=== PATIENT | female | born 1930 | race Caucasian/White ===

== ENCOUNTER 2016-11-05 03:07 | Inpatient (IN) | payer MEDICARE, MEDICAID ==
--- NOTE | ~2016-11-05 | ECHO ---
Transthoracic Echocardiography Report (TTE) Demographics Patient Name RADHA SINGH Date of Study 11/07/2016 Patient Number [id number] Visit Number [id number] Date of 1930 Room Number G6224 Accession Number [id number] Gender Female Age 86 year(s) Referring Tomas Resendiz V Floor Covering Printer Belén Ibrahim RVT Physician Physician Interpreting Nawaf Durand MD Works Manager Physician Supervising Ordering Physician Ivette Cannon MD, MD/MLP Nurse Stress Funeral Planning Counselor Conclusions Contractility Score Summary Normal Left Ventricular contractility was noted. Summary The estimated left ventricular ejection fraction is 55-60%. Mild to moderate concentric left ventricular hypertrophy. Diastolic assessment reveals Grade I diastolic dysfunction. The left atrium is mildly dilated. The right atrium is mildly dilated. Device lead seen in the right atrium and right ventricle. Mild mitral annular calcification. There is mild aortic stenosis by the Continuity Equation. The peak velocity is 2.88 m/s, the mean gradient is 17 mmHg, and the valve area based on the continuity equation is 2.48 cm2, stroke volume index is 64.81 ml/m2. There is moderate aortic regurgitation by color Doppler. Mild tricuspid regurgitation by color Doppler. There is mild pulmonary hypertension. The pulmonary pressure (RVSP) is 40 mmHg. The ascending aorta appears mildly dilated. The maximum diameter measures 3.3 cm. Procedure Type of Study TTE procedure:2D Echocardiogram. Procedure Date Date: 11/07/2016 Start: 04:35 PM Study Location: Inpatient Portable Technical Quality: Adequate visualization Indications:Shortness of breath and Congestive heart failure. Appropriate Use Criteria: 8 Patient Status: Routine Rhythm: Paced HR: 80 bpm BP: 136/61 mmHg M-Mode/2D Measurements LV Diastolic Dimension: 4.51 cm LV Systolic Dimension: 2.61 cm LV Septum Diastolic: 1.32 cm LV PW Diastolic: 0.86 cm AO Root Dimension: 2.5 cm Cardiac Output: 8.92 l/min LA Dimension: 3 cm LVOT: 2.1 cm LVOT VTI: 32.2 cm RV Base: 3.73 cm LV Stroke volume: 111.47 ml RV Length: 6.33 cm TAPSE: 1.94 cm TDI-S': 14.1 cm/s Doppler Measurements AV Peak Velocity: 2.88 m/s MV Peak E-Wave: 0.85 m/s AV Peak Gradient: 33.18 mmHg MV Peak A-Wave: 1.04 m/s AV Mean Gradient: 17 mmHg MV E/A Ratio: 0.82 LVOT Peak Velocity: 1.86 m/s MV P1/2t: 74 msec AV P1/2t: 402 msec TR Gradient:35.05 mmHg PV Peak Velocity: 1.48 m/s Estimated RAP:5 mmHg PV Peak Gradient: 8.76 mmHg Estimated RVSP: 40 mmHg Estimated PASP: 40.05 mmHg E' Septal Velocity: 0.07 m/s A' Septal Velocity: 0.1 m/s E' Lateral Velocity: 0.08 m/s A' Lateral Velocity: 0.15 m/s Findings Left Ventricle Mild to moderate concentric left ventricular hypertrophy. Diastolic assessment reveals Grade I diastolic dysfunction. Right Ventricle Normal right ventricle structure and function. Device lead noted in the right ventricle. Left Atrium Normal left atrial size. Right Atrium The right atrium is mildly dilated. IVC measures 1.56 cm with inspiratory collapse. Device lead seen in the right atrium. Mitral Valve Trivial mitral regurgitation by color Doppler. Mild mitral annular calcification. Aortic Valve There is mild aortic stenosis by the Continuity Equation. The peak velocity is 2.88 m/s, the mean gradient is 17 mmHg, and the valve area based on the continuity equation is 2.48 cm2, stroke volume index is 64.81 ml/m2. There is moderate aortic regurgitation by color Doppler. Tricuspid Valve Mild-moderate tricuspid regurgitation by color Doppler. There is mild pulmonary hypertension. The pulmonary pressure (RVSP) is 40 mmHg. Pulmonic Valve Trivial pulmonic valve regurgitation by color Doppler. Pericardial Effusion No evidence of pericardial effusion. Miscellaneous The ascending aorta appears mildly dilated. The maximum diameter measures 3.3 cm. Pleural Effusion No evidence of pleural effusion. Contractility Score LV regional wall motion:(0-Non visualized 1-Normal 2-Hypokinesis 3-Akinesis 4-Dyskinesis 5-Aneurysm) Signature dtt: Ladarius Mccracken (cardio) dtd: 11/07/16 1635 Physician Self Edit
--- NOTE | ~2016-11-05 | ER ---
PATIENT'S NAME: RADHA SINGH [facility] AGE: 86 Y [address] ROOM: [place] [address] LOCATION: [facility] ADMIT DATE: 11/05/2016 ER/Outpatient Report DISCHARGE DATE: FAMILY PHYSICIAN: Physician, Unknown ATTENDING PHYSICIAN: Chester Rondon Admission date and time documented in the medical record. I saw the patient at 0315 hours. CHIEF COMPLAINT: Fall, right hip pain. HISTORY OF PRESENT ILLNESS: The patient is an 86-year-old female, who is a resident of [facility]. She was heard crying out and was found on the floor. Placed back in bed, complained of right hip pain. Paramedics were dispatched. They brought the patient to the emergency room by ambulance for evaluation. The patient has a slightly shortened right leg with pain with movement in the right hip. Very hard of hearing, but voices no other complaints. The patient does have a history of paroxysmal atrial fibrillation, is chronic anticoagulated with Coumadin. She does have a seizure disorder. Some dementia, depression. No recent coughs, colds, flus, fever, chills, or sweats. No chest pain, shortness of breath. No abdominal pain, nausea, vomiting, diarrhea. No incontinence of stool or urine. No other extremity injury. No endocrine problems. Does have a history of depression. HOME MEDICATIONS: See attached medication list. ALLERGIES: NONE. SOCIAL HISTORY: Nonsmoker and nondrinker. SIGNIFICANT PAST MEDICAL HISTORY: Hypertension, seizure disorder, paroxysmal atrial fibrillation, dementia, ovarian cancer, meningioma, chronic kidney disease, remote tobacco abuse, chronic anticoagulation with Coumadin, recurrent falls, and depression. OPERATIONS: Hysterectomy, cholecystectomy, cardioversion, and excision of meningioma. REVIEW OF SYSTEMS: All systems reviewed by me are negative with the exception of those discussed in the history of present illness. PATIENT'S NAME: RADHA SINGH [facility] AGE: 86 Y [address] ROOM: [place] [address] LOCATION: [facility] ADMIT DATE: 11/05/2016 ER/Outpatient Report DISCHARGE DATE: FAMILY PHYSICIAN: Physician, Unknown ATTENDING PHYSICIAN: Chester Rondon PHYSICAL EXAMINATION: VITAL SIGNS: Temperature 98.7, pulse 97, respirations 16, blood pressure 132/60, O2 saturation on room air is 98%. HEENT: Negative. LUNGS: Clear. HEART: Regular. Pulses are palpable. ABDOMEN: Soft, nondistended, and nontender. Active bowel tones. PELVIS: Stable. EXTREMITIES: She has a slightly shortened right leg. Tender in the right hip to palpation and with any movement. No open wounds. NEUROVASCULAR: Intact other than she is very hard of hearing. SKIN: Clear. X-RAYS: Plain x-ray of the pelvis showed no fracture. X-ray of the right hip showed femoral neck fracture. Chest x-ray showed no acute infiltrate. We will review all plain films with the radiologist and orthopedic surgeon. Started the patient on IV normal saline, fluids. Gave her fentanyl for pain. IMPRESSION: 1. Right femoral neck fracture secondary to fall. 2. Paroxysmal atrial fibrillation with chronic anticoagulation using Coumadin. 3. Hypertension. 4. Chronic kidney disease. 5. Remote tobacco abuse. 6. Depression. PLAN: Discussed the patient with Dr. Wellington, orthopedic surgeon. We will admit the patient to the hospital per Dr. Marin, hospitalist. MD AMANDA DUONG/modl /[id number] d: 11/05/16 0433 t: 11/05/16 1829, OUTPATIENT REPORT
--- NOTE | ~2016-11-05 | HP ---
PATIENT'S NAME: RADHA SINGH [facility] AGE: 86 Y [address] ROOM: [place] [address] LOCATION: [facility] ADMIT DATE: 11/05/2016 History & Physical DISCHARGE DATE: FAMILY PHYSICIAN: PHYSICIAN, UNKNOWN ATTENDING PHYSICIAN: MARCIA MURDOCK V CHIEF COMPLAINT: Fall. HISTORY OF PRESENT ILLNESS: The patient is an 86-year-old female, resident of assisted living who was found down earlier today. She was put back in bed, but kept complaining of right hip pain. She was taken to the ER where she was found to have a right femoral neck fracture. This entire history is obtained from ER physician, as the patient is somewhat disoriented right now. She denies any chest pain, shortness of breath, nausea, vomiting, diarrhea, or diaphoresis. Her only complaint at this point is to urinate though she does have a Gutierrez catheter in place. REVIEW OF SYSTEMS: All systems have been reviewed and are negative aside from pertinent positives mentioned above. PAST MEDICAL HISTORY: As extracted from an accompanying chart is positive for atrial fibrillation, on Coumadin; pacemaker; depression; seizure disorder, on Dilantin; CKD stage 3; and GERD. PAST SURGICAL HISTORY: Positive for history of ovarian malignancy. CURRENT MEDICATIONS: 1. Coumadin. 2. Ensure. 3. Potassium chloride. 4. Calcium carbonate. 5. Aricept. 6. Mirtazapine. 7. Acetaminophen. 8. Robitussin. 9. Milk of magnesia. 10. Lisinopril/hydrochlorothiazide. 11. Dulcolax. 12. Diltiazem. 13. Calcium. 14. Acetaminophen. PATIENT'S NAME: RADHA SNIGH [facility] AGE: 86 Y [address] ROOM: [address] [place] [id number] LOCATION: [facility] ADMIT DATE: 11/05/2016 History & Physical DISCHARGE DATE: FAMILY PHYSICIAN: PHYSICIAN, UNKNOWN ATTENDING PHYSICIAN: MARCIA MURDOCK V FAMILY HISTORY: Cannot be reviewed due to altered mental status. SOCIAL HISTORY: The patient resides in an assisted living. She has no ongoing toxic habits. PHYSICAL EXAMINATION: VITAL SIGNS: Blood pressure 132/60, pulse is 97, respirations are 16, temperature 98.7, and satting 90% on 2 L nasal cannula. GENERAL: Appears as an elderly and frail female, in no acute distress. NEUROLOGICAL: Nonfocal. EYES: Pupils are equal and reactive to light. LYMPHATIC: No cervical lymphadenopathy. ENDOCRINE: No thyromegaly. LUNGS: Clear to auscultation in all garcia. HEART: Regular with no appreciable murmurs, gallops, or rubs. GI: Abdomen is soft, nontender, and nondistended. : No costovertebral angle tenderness. VASCULAR: Reveals 2+ pedal pulses. MUSCULOSKELETAL: Deferred. SKIN: Warm and dry. PSYCHIATRIC: Somewhat disoriented cognition, but preserved mood and affect. LABORATORY DATA: Studies from the ER significant for an EKG, which sinus tachycardia at 100 beats per minute with no ST-segment or T-wave abnormalities. Lab results are significant for sodium 134, alkaline phosphatase is 170, white count is 13.3, INR of 3.3. Urinalysis with 500 leukocytes, positive nitrites, and many bacteria. ASSESSMENT AND PLAN: This is an 86-year-old female who is admitted for surgical intervention on a right femoral neck fracture. Prior to proceeding to surgery, we will have to reverse her Coumadin level. We will give her vitamin K and FFP now. My understanding is that surgery is scheduled for later today. We will repeat her coags once she receives her blood products. While the circumstances of her fall are unknown, she does not appear to be volume overloaded and is not reporting any other symptoms. We will get a standard chest x-ray and an EKG. We will assess need for further preoperative workup based on those tests. 1. Apparent pyuria with bacteriuria. We will treat that with a brief course of antibiotics. 2. History of seizure disorder. The patient's Dilantin was recently discontinued and we will have to find out why and whether has contributed to her fall today. PATIENT'S NAME: RADHA SINGH [facility] AGE: 86 Y [address] ROOM: [address] [place], [place] [address] LOCATION: [facility] ADMIT DATE: 11/05/2016 History & Physical DISCHARGE DATE: FAMILY PHYSICIAN: PHYSICIAN, UNKNOWN ATTENDING PHYSICIAN: MARCIA MURDOCK V 3. Depression and anxiety. We will continue her on mirtazapine. 4. Goals of care. There is a DNR accompanying the patient and we will make that her status. 5. Additional management will depend on reversal of her anticoagulation, chest x-ray, EKG, and surgical workup planned. Time dedicated to this patient's encounter is 35 minutes. MD JENNA BARONE/negro /[id number] D: [id number] T: [id number] HISTORY & PHYSICAL
--- NOTE | ~2016-11-05 | OR ---
PATIENT'S NAME: RADHA SINGH [facility] AGE: 86 Y [address] ROOM: [address] [address] LOCATION: [facility] ADMIT DATE: 11/05/2016 OR/Procedure Report DISCHARGE DATE: FAMILY PHYSICIAN: PHYSICIAN, UNKNOWN ATTENDING PHYSICIAN: MARCIA MURDOCK V SURGEON: Gt Wellington MD ELECTRICIAN'S ASSISTANT: MARI Solitario. DATE OF PROCEDURE: 11/06/2016 PREOPERATIVE DIAGNOSIS: Displaced subcapital fracture, right hip. POSTOPERATIVE DIAGNOSIS: Displaced subcapital fracture, right hip. OPERATION: Noncemented hemiarthroplasty, right hip, with Remedios #11 M/L taper stem with standard offset and a plus 0 x 49 mm unipolar head. ANESTHESIA: General ET tube. INDICATIONS: This is an 86-year-old female, who fell yesterday sustaining a subcapital fracture of her right hip that was displaced. PROCEDURE: The patient was brought to the operating room and when satisfactory general anesthesia had been established, she was placed on her left side with the right side up. The right lower extremity, hip, and hemipelvis were prepped and draped in an aseptic manner. A curvilinear posterior incision was made, centered over the greater trochanter, and carried down through the subcutaneous fat. The fascia nae and fascia of the gluteus alex were divided in line with the skin incision. The short external rotators were put on stretch and cut close to the greater trochanter. The capsule was opened in a T-shaped incision and the fracture visualized and the femoral head removed with a corkscrew. The neck was cut about a fingerbreadth proximal to the lesser trochanter. The neck was lateralized with a box cut chisel and the canal found. Broaching was begun at a and carried up to an 11, which appeared to be rotationally stable. The size 11 M/L taper standard offset stem was opened and impacted down the canal. The 49 mm plus 0 head was impacted on the trunnion and the hip reduced. After irrigating the acetabulum and palpating it for any loose fragments. The capsule was closed with interrupted #2 Orthocord. The piriformis was repaired to the gluteus medius with modified José stitch of #2 Orthocord. The remainder of the closure was by MARI Whelan, and closed the fascia nae with a running #1 Vicryl, the fascia of the gluteus alex with a running #1 Vicryl, the subcutaneous fat with a running 2-0 Vicryl, and the skin with skin jesus. Dressings were applied, and the patient awakened and sent to the recovery area, having tolerated the procedure well. PATIENT'S NAME: RADHA SINGH [facility] AGE: 86 Y [address] ROOM: [place] [address] LOCATION: [facility] ADMIT DATE: 11/05/2016 OR/Procedure Report DISCHARGE DATE: FAMILY PHYSICIAN: PHYSICIAN, UNKNOWN ATTENDING PHYSICIAN: MARCIA MURDOCK V MD LEESA DONALD/negro /[id number] d: 11/06/16 1236 t: 11/11/16 1041, OPERATIVE SUMMARY
--- NOTE | ~2016-11-05 | DS ---
PATIENT'S NAME: RADHA SINGH [facility] AGE: 86 Y [address] ROOM: [address] [place], [place] [address] LOCATION: [facility] ADMIT DATE: 11/05/2016 Discharge Summary DISCHARGE DATE: 11/16/2016 FAMILY PHYSICIAN: Physician, Unknown ATTENDING PHYSICIAN: Martín Marin V PRINCIPAL DIAGNOSIS: Displaced right hip fracture, status post open reduction and internal fixation. OTHER DIAGNOSES: 1. Delirium in the hospital on top of dementia/Alzheimer's. 2. Gastroesophageal reflux disease. 3. Chronic kidney disease, stage 3. 4. History of seizures. 5. Depression. 6. Hypertension. 7. Newly found pulmonary nodules on the left side measuring 0.6 cm as well as bilateral adrenal masses on the CAT scan. HOSPITAL COURSE: An 86-year-old lady with a past medical history of severe dementia and Alzheimer's, history of atrial fibrillation with controlled ventricular rates and on long-term anticoagulation therapy, fell in a custodial, was brought here after right hip fracture was noted. Orthopedics were consulted, and they took the patient to the operating room, and did a right hemiarthroplasty. Her postoperative course was complicated by acute delirium on top of her dementia. Dementia/delirium protocol was instituted in the hospital with partial success. She also tripped into atrial fibrillation with rapid ventricular rate, and cardiology was consulted and they increased AV blocking agents in the form of Cardizem as well as metoprolol. Of note, we found new pulmonary nodules 0.6 cm in the left lower aspect of the lung as well as bilateral adrenal masses. She will need to follow up with Pulmonary on an outpatient basis to follow up this nodule. Given her advanced age, dementia, and multiple comorbidities, how aggressive the medical treatment would be decided by the POA. We, during the course of the hospitalization, tried to reach the son, who lives in [place] but was unable to reach him. Left message on his number. Today, we deemed that she is back to her baseline, and we will send her back to the nursing facility. DISCHARGE MEDICATIONS: 1. Tylenol 650 mg p.o. every 6 hours p.r.n. 2. Calcium carbonate 600 mg p.o. every day. 3. Potassium chloride 20 mEq p.o. twice daily. 4. Calcium carbonate 2 tablets p.o. every 1 hour p.r.n. 5. Diltiazem 240 mg p.o. every day. 6. Donepezil 10 mg p.o. every day. 7. Famotidine 20 mg p.o. twice daily. PATIENT'S NAME: RADHA SINGH [facility] AGE: 86 Y [address] ROOM: [place] [address] LOCATION: [facility] ADMIT DATE: 11/05/2016 Discharge Summary DISCHARGE DATE: 11/14/2016 FAMILY PHYSICIAN: Physician, Unknown ATTENDING PHYSICIAN: Martín Marin V 8. Metoprolol tartrate 50 mg p.o. twice daily. 9. Phenytoin 100 mg p.o. twice daily. 10. Phenytoin 200 mg p.o. every night at bedtime. 11. Montezuma 5/325 p.o. 4 hours as needed for pain. 12. Dulcolax suppository 10 mg p.r.n. 13. Guaifenesin 200 mg p.o. every 4 hours as needed for cough. 14. Magnesium hydroxide 30 mL p.o. every day p.r.n. for constipation. 15. Mirtazapine 45 mg p.o. every night at bedtime. 16. Coumadin 5 mg p.o. 4 days a week. That will be Wednesday, Wednesday, , and Wednesday, and then Coumadin 7.5 mg 3 days a week, and that would be on Wednesday and Wednesday. I spent 15 minutes talking to the patient's son and answered his questions and concerns. DISCHARGE ACTIVITY: As tolerated per PT, OT. DIET: Regular diet. FOLLOWUP: Follow up with Orthopedics as prescribed and followup with primary care physician in 1-2 weeks. The patient was hemodynamically stable on discharge. I received a call from the son regarding the patient. We discussed the prognosis and the course of the hospitalization. I also discussed the CT finding of the pulmonary nodule as well as adrenal masses. He does not want to pursue any aggressive measures at this point in terms of diagnosis and surgeries. He told to let her be and get her to a nursing facility where she can get some physical therapy and enjoy the rest of her life over there. He is going to contact the nursing facility by himself as well. MD MONTEZ QUIÑONES/negro /[id number] d: 11/15/16 0055 t: 11/17/16 1636, DISCHARGE SUMMARY
--- NOTE | ~2016-11-05 | HP ---
PATIENT'S NAME: RADHA SINGH [facility] AGE: 86 Y [address] ROOM: [place] [address] LOCATION: [facility] ADMIT DATE: 11/05/2016 History & Physical DISCHARGE DATE: FAMILY PHYSICIAN: PHYSICIAN, UNKNOWN ATTENDING PHYSICIAN: MARCIA MURDOCK V CHIEF COMPLAINT: Femoral neck fracture, right hip. HISTORY: This 86-year-old female resides at assisted living facility, [facility] here in [place]. She fell last night, unwitnessed, was found at the side of her bed unable to move, they helped her up in bed but continued to have pain in the right hip. An ambulance brought her to the emergency room at [facility] where x-rays demonstrated displaced right femoral neck fracture. She denies other injuries. No blackout spells, headaches, dizziness or blurred vision. No loss of consciousness. PAST MEDICAL HISTORY: Atrial fibrillation, on Coumadin; pacemaker, depression; seizure disorder, on Dilantin; chronic kidney disease stage III, GERD. PAST SURGICAL HISTORY: Hysterectomy for ovarian malignancy. MEDICATIONS: 1. Coumadin. 2. Ensure. 3. Potassium. 4. Aricept. 5. Mirtazapine. 6. Acetaminophen. 7. Robitussin. 8. Lisinopril. 9. Hydrochlorothiazide. 10. Dulcolax. 11. Diltiazem. 12. Calcium. FAMILY HISTORY: Positive for heart disease. SOCIAL HISTORY: Lives in assisted living at [facility]. No alcohol or smoking. REVIEW OF SYSTEMS: No coughs, colds, fevers, chills, or sore throats. No chest pain, shortness PATIENT'S NAME: RADHA SINGH [facility] AGE: 86 Y [address] ROOM: [place] [address] LOCATION: [facility] ADMIT DATE: 11/05/2016 History & Physical DISCHARGE DATE: FAMILY PHYSICIAN: PHYSICIAN, UNKNOWN ATTENDING PHYSICIAN: MARCIA MURDOCK V of breath, or trouble breathing. No nausea, vomiting, or diarrhea. She does have constipation. No dysuria or hematuria. No skin rashes. No auditory or visual changes except that she is chronically hard of hearing. No malaise or weight change. PHYSICAL EXAMINATION: GENERAL: She is hard of hearing. VITAL SIGNS: Blood pressure 132/60, pulse 97, respirations 16, temp 98.7, O2 saturations 90% on 2 L. HEENT: Atraumatic, normocephalic. PERRL. EOMI. TMs clear. Throat clear. NECK: Supple. CHEST: Clear to auscultation. HEART: Regular rhythm. No murmurs or gallops. ABDOMEN: Obese, soft, nontender. No masses. VASCULAR: Good pulses both upper and lower extremities. EXTREMITIES: Right hip is shortened and internally rotated. She is tender in the right groin, has pain with movement. Knees have no tenderness or warmth or redness. She is a little disoriented. SKIN: Warm and dry. X-RAY: AP pelvis and lateral of the right hip demonstrates displaced right femoral neck fracture. IMPRESSION: 1. Displaced right femoral neck fracture. 2. Anticoagulated on Coumadin. INR 3.33. 3. History of atrial fibrillation. 4. Depression. 5. Hypertension. 6. Dementia. 7. Status post pacemaker. 8. History of seizures. 9. Chronic kidney disease. 10. Gastroesophageal reflux disease. PLAN: Preoperative medical clearance followed by hemiarthroplasty right hip. I discussed details of the surgical procedure, risks, benefits, and alternatives emphasizing anesthetic, neurovascular, and infectious complications with the patient and her son. They understand and desired to proceed with surgery as planned. PATIENT'S NAME: RADHA SINGH [facility] AGE: 86 Y [address] ROOM: [place] [address] LOCATION: [facility] ADMIT DATE: 11/05/2016 History & Physical DISCHARGE DATE: FAMILY PHYSICIAN: PHYSICIAN, UNKNOWN ATTENDING PHYSICIAN: MARCIA MURDOCK V MD GIAN CABA/negro /[id number] D: [id number] T: [id number] HISTORY & PHYSICAL
--- NOTE | ~2016-11-05 | CON ---
PATIENT'S NAME: RADHA SINGH [facility] AGE: 86 Y [address] ROOM: [place] [address] LOCATION: [facility] ADMIT DATE: 11/05/2016 Consultation DISCHARGE DATE: FAMILY PHYSICIAN: PHYSICIAN, UNKNOWN ATTENDING PHYSICIAN: MARCIA MURDOCK V DATE OF CONSULTATION: 11/10/2016 REFERRING PHYSICIAN: Gt [place] MD REQUESTING PROVIDER: Dr. Mccracken. REASON FOR CONSULTATION: Atrial fibrillation with rapid ventricular response. CHIEF COMPLAINT: [facility]. HISTORY OF PRESENTING ILLNESS: The patient is an 86-year-old female, who resides at assisted living, and she fell down yesterday, that was unwitnessed, and she complained of right hip pain, and when she was in the ER, she was noted to have a right femoral neck fracture, status post surgery. She has advanced dementia and really is very drowsy right now and unable to answer any of my questions. She underwent procedure without any acute complications. Since yesterday, she was in atrial fibrillation with RVR. EKG on 11/05/2016 showed normal sinus rhythm. She has history of paroxysmal atrial fibrillation and has been on Coumadin as well as diltiazem for rate control. She usually sees Dr. Ladarius Mccracken for cardiology; however, he is unavailable to see the patient during her acute hospitalization and so [facility] has been consulted. REVIEW OF SYSTEMS: Unable to obtain as the patient is quite drowsy and disoriented at this time. PAST MEDICAL HISTORY: From chart review, she has: 1. Paroxysmal atrial fibrillation. 2. Long-term anticoagulation with Coumadin. 3. History of pacemaker implantation. 4. GERD. 5. CKD stage 3. 6. Seizure, on Dilantin. 7. Depression. 8. Hypertension. 9. Dementia. PATIENT'S NAME: RADHA SINGH [facility] AGE: 86 Y [address] ROOM: [place] [address] LOCATION: [facility] ADMIT DATE: 11/05/2016 Consultation DISCHARGE DATE: FAMILY PHYSICIAN: PHYSICIAN, UNKNOWN ATTENDING PHYSICIAN: MARICA MURDOCK V 10. History of ovarian cancer. 11. History of meningioma, status post resection in 2007. 12. Nodular density noted on recent CAT scan, suspicious for malignancy. 13. Bilateral adrenal masses noted on CT scan done this admission. SOCIAL HISTORY: The patient resides in assisted living. No drug abuse or alcohol abuse. FAMILY HISTORY: Cannot be obtained due to altered mental status. PAST SURGICAL HISTORY: History of ovarian malignancy, status post resection of meningioma in 2007. PHYSICAL EXAMINATION: VITAL SIGNS: Blood pressure is 155/68, temperature 98.8, O2 sats are 90% on 2 L, pulse is in the 90s. I's and O's, she has had positive intake for the past few days of about 6 L. Her weight today is 70.4 kg. GENERAL: The patient is an elderly lady, in mild distress. EYES: Sclera white. No xanthelasma. NECK: Supple. Positive JVD to the angle of the jaw. LUNGS: Bibasilar crackles. HEART: S1, S2. Irregular rate and rhythm, 2/6 systolic murmur at the apex. ABDOMEN: Soft. Bowel sounds are positive. EXTREMITIES: Mild lower extremity edema. SKIN: Warm and dry. NEUROLOGIC: The patient is not oriented to time, place, or person. MEDS: See MAR, reviewed med list. LABORATORY DATA: Sodium is 142, potassium 4.4, chloride 104, CO2 of 31, BUN 25, creatinine 0.9. Albumin 2.3, globulin 3.4, alkaline phosphatase 111, AST 42, ALT 19, GFR is 59, magnesium 1.8. ProBNP this admission actually initially was 350 and today, it is 8198. Her TSH is 0.223. WBC 4.1, H and H are 9.4 and 29.5, and platelets are 132. Her INR today is 2.3. EKG: Atrial fibrillation with heart rate in the 90s, interventricular conduction delay. Echocardiogram done on November 05, 2016, shows LVEF of 55% to 60%, mild to moderate concentric LVH, mild biatrial enlargement, mild diastolic dysfunction, mild aortic valve stenosis with mean gradient of 17, moderate aortic insufficiency, mild tricuspid regurgitation, mild pulmonary hypertension with RV systolic pressure of 40 mmHg. MEDICATIONS: She is currently on: 1. Cardizem drip 10 mg/hour. PATIENT'S NAME: RADHA SINGH [facility] AGE: 86 Y [address] ROOM: [place] [address] LOCATION: [facility] ADMIT DATE: 11/05/2016 Consultation DISCHARGE DATE: FAMILY PHYSICIAN: PHYSICIAN, UNKNOWN ATTENDING PHYSICIAN: MARCIA MURDOCK V 2. Aricept 10 mg daily. 3. IV fluids have been discontinued. 4. Coumadin 7.5 on Wednesday, Wednesday, and Wednesday, and 5 mg on Wednesday, Wednesday, , and Wednesday. 5. Dilantin 100 b.i.d. and 200 at bedtime. 6. Florastor 250 b.i.d. 7. Os-Darek 500 daily. 8. Pepcid 20 b.i.d. 9. Tylenol Extra Strength p.r.n. IMPRESSION AND PLAN: An 86-year-old female, who is admitted for right femoral neck fracture, status post fall, status post surgery. 1. History of paroxysmal atrial fibrillation, on long-term anticoagulation with Coumadin. INR now is 2.3, and her rates are well controlled on Cardizem 10 mg/hour. 2. Acute diastolic congestive heart failure with volume overload, elevated JVD, vascular congestion noted on CT scan. She did get significant IV fluids and positive volume over the past few days. 3. Depression. 4. History of seizure disorder. 5. Alzheimer disease with altered mentation. At this time, I will give her Lasix IV 40 mg now as well as another dose tomorrow. We will place a Gutierrez catheter to check strict I's and O's and daily weights. She likely went into atrial fibrillation with RVR status post volume changes and fluid shifts with surgery as well as postop period as well as the volume overload and diastolic CHF exacerbated her to go into atrial fibrillation and RVR. I agree with Cardizem drroger. She is doing very well. I think once we improve her volume status and diurese her, I hope she will return back to sinus rhythm. Recommend to continue Coumadin with INR goal of 2 to 3. We will monitor her renal function closely given her history of CKD stage 3. Her GFR is 58 at this point. We will continue to follow the patient along with you. The patient is a DNR. Thank you very much for allowing us to participate in the care of this patient. PATIENT'S NAME: RADHA SINGH [facility] AGE: 86 Y [address] ROOM: [address] [address] LOCATION: [facility] ADMIT DATE: 11/05/2016 Consultation DISCHARGE DATE: FAMILY PHYSICIAN: PHYSICIAN, UNKNOWN ATTENDING PHYSICIAN: MARCIA MURDOCK MD AT/negro /[id number] d: 11/10/16 2219 t: 11/11/16 1821, CONSULTATION REPORT
[~2016-11-05 03:07] MED LIST: COUMADIN ** IA5 MG PO; COUMADIN3 MG PO; DESYREL50 MG; DILANTIN100 MG PO; KLOR-CON 1010 MEQ PO; OSCAL PO; PACERONE200 MG PO; REMERON45 MG PO; TYLENOL325 MG PO; ZESTORETIC 10-1 EACH PO
[2016-11-05 04:33] LABS: HEMATOCRIT 37.5 % (30.0-46.0); HEMOGLOBIN 12.5 g/dL (10.0-15.0); MCH 29.7 pg (27.0-34.0); MCHC 33.3 gm/dL (32.0-36.5); MCV 89.1 fl (83.0-98.0); MPV 8.9 fl (9.4-12.4); PLATELET COUNT 183 K/uL (150-450); RBC 4.21 M/uL (3.00-5.00); RDW-CV 12.9 % (11.9-14.6); WBC 13.3 K/uL (4.0-11.0)
[2016-11-05 04:43] LABS: PTT 43 SECONDS (25-32)
[2016-11-05 04:44] LABS: INR - (THERAPEUTIC) 3.3 (0.9-1.1); PROTIME 38.3 SECONDS (9.6-11.1)
[2016-11-05 04:45] LABS: BILIRUBIN URINE NEGATIVE (NEGATIVE); BLOOD URINE 50 /UL (NEGATIVE); COLOR URINE YELLOW (YELLOW); GLUCOSE URINE NEGATIVE (NEGATIVE); KETONE URINE NEGATIVE (NEGATIVE); LEUKOCYTES URINE 500 /UL (NEGATIVE); NITRITE URINE POSITIVE (NEGATIVE); PROTEIN URINE 15 mg/dL (NEGATIVE); SPEC GRAVITY URINE 1.015 (1.003-1.035); TURBIDITY URINE 1+ (CLEAR); UROBILINOGEN URINE NORMAL (NORMAL)
[2016-11-05 04:48] LABS: ALBUMIN 3.3 gm/dL (3.5-5.0); ANION GAP 13.1 (10.0-19.0); CALCIUM 8.5 mg/dL (8.5-10.5); CREATININE 1.1 mg/dL (0.5-1.1); POTASSIUM 4.1 mMol/L (3.7-5.1); TOTAL BILIRUBIN 0.3 mg/dL (0.0-1.5); TOTAL PROTEIN 6.6 g/dL (6.0-8.4)
[2016-11-05 04:54] LABS: BACTERIA URINE MANY (NEGATIVE); EPITHELIAL URINE 0-2 #/HPF (NEGATIVE); WBC CLUMPS URINE FEW (NEGATIVE); WBC URINE 50-100 #/HPF (NEGATIVE)
[2016-11-05 05:01] LABS: ABSOLUTE NEUTROPHIL CT (ANC) 12.5 K/uL (1.8-7.8); BANDED NEUTROPHILS % 15 %; LYMPHOCYTE # 0.3 K/uL (0.8-4.0); LYMPHOCYTE % 2 %; MONOCYTE # 0.5 K/uL (0.0-1.0); SEGMENTED NEUTROPHIL # 10.5 K/uL (1.8-7.8); SEGMENTED NEUTROPHIL % 79 %
[2016-11-05] MEDS ORDERED: CALCIUM CARBON600 MG PO (08:15)
[2016-11-05] MEDS ORDERED: DILANTIN100 MG PO (08:16)
[2016-11-05] MEDS ORDERED: DULCOLAX10 MG R (08:17)
[2016-11-05] MEDS ORDERED: DILTIAZEM 24HR120 MG PO (08:17)
[2016-11-05] MEDS ORDERED: MILK OF MA400 MG/5 M PO (08:19)
[2016-11-05] MEDS ORDERED: ROBITUSSIN100 MG/5 M PO (08:20)
[2016-11-05] MEDS ORDERED: ARICEPT10 MG PO (08:21)
[2016-11-05] MEDS ORDERED: TUMS REGULAR ST1 TAB PO (08:22)
[2016-11-05] MEDS ORDERED: COUMADIN **IA7.5 MG PO (08:24)
[2016-11-05 09:23] LABS: ALBUMIN 3.4 gm/dL (3.5-5.0); ANION GAP 16.1 (10.0-19.0); CALCIUM 8.6 mg/dL (8.5-10.5); CREATININE 1.1 mg/dL (0.5-1.1); POTASSIUM 4.1 mMol/L (3.7-5.1)
--- NOTE | 2016-11-05 11:55 | NUR ---
Pt is 86 y/o female admit post fall for right hip fracture for . consulted. PT oriented to person only. Has some dementia. No allergies. Yellow bracelet on. Pt resides at [facility] and was found on the floor by staff earlier this morning. She was assisted back to bed and c/o R)hip pain. EMS called and taken to ED. PT has hx afib-on coumadin,htn,cough,dementia,sz,pacemaker,CKD,LOVELOCK,gerd,hypokalemia, constipation. Pt received FFP to reverse anticoagulation. Her INR was 3.3 today. Pt to have surgery tomorrow.
--- NOTE | 2016-11-05 12:06 | NUR ---
1030 Introduced myself to patient and explained my role. I asked if she wanted me to talk to her son Antony about discharge planning? She said yes. 1205 Called son Antony #[phone]. He doesn't really have an opinion about any of the SNF's in [facility] so will see who has beds. Patient was at [facility] a year ago. Earliest possible discharge would be on Wednesday due to the holiday weekend. Surgery is tomorrow.
[2016-11-05 14:10] LABS: INR - (THERAPEUTIC) 1.7 (0.9-1.1); PROTIME 18.3 SECONDS (9.6-11.1)
--- NOTE | 2016-11-05 18:23 | NUR ---
Significant Event: PT ADMITTED TO THE FLOOR AT 0700. PT IS FROM [facility] AND FELL LAST NIGHT. HX DEMENTIA, PACEMAKER, A-FIB. PT IS ALERT; KNOWS SELF/BIRTHDAY. PT IS VERY HARD OF HEARING. DOES WEAR BILATERAL HEARING AIDES. O2 AT 2 LITERS PER NASAL CANNULA. AFEBRILE. TACHYNPNEIC WITH RATES FROM 22-24. BOWEL SOUNDS HYPOACTIVE X4. ROBERTSON PATENT, DRAINING CLOUDY YELLOW URINE. R)KNEE ABRASION, R)HIP AND R)FA BRUISES. BILATERAL CALF PUMPS IN PLACE. BEDREST. 2-ASSIST. IV TO R)WRIST; INTERMITTENT ANTIBIOTICS FOR UTI. REGULAR DIET. TAKES MEDICATIONS WHOLE WITH WATER. INR ON ADMIT WAS 3.3. 3 UNITS FRESH FROZEN PLASMA GIVEN AND PO VITAMIN K. RE-CHECK INR AT 1300 WAS 1.7. 1 PERCOCET GIVEN AT 1019 FOR SIGNS/SYMPTOMS OF PAIN, WITH RELIEF. Follow up: MONITOR INR IN AM; NPO AFTER MIDNIGHT, SURGERY TOMORROW PER , CONSENTS NEED SIGNED, PRE-OP CHECKLIST
[2016-11-06 02:26] LABS: ANION GAP 13.6 (10.0-19.0); CALCIUM 8.2 mg/dL (8.5-10.5); CREATININE 1.1 mg/dL (0.5-1.1); POTASSIUM 3.6 mMol/L (3.7-5.1)
[2016-11-06 06:08] LABS: HEMATOCRIT 35.3 % (30.0-46.0); HEMOGLOBIN 11.5 g/dL (10.0-15.0); MCH 29.3 pg (27.0-34.0); MCHC 32.6 gm/dL (32.0-36.5); MCV 90.1 fl (83.0-98.0); MPV 8.9 fl (9.4-12.4); RBC 3.92 M/uL (3.00-5.00); WBC 7.7 K/uL (4.0-11.0)
[2016-11-06 06:10] LABS: PLATELET COUNT 142 K/uL (150-450)
[2016-11-06 06:17] LABS: PTT 34 SECONDS (25-32)
[2016-11-06 06:24] LABS: CALCIUM 8.3 mg/dL (8.5-10.5)
[2016-11-06 06:25] LABS: INR - (THERAPEUTIC) 1.3 (0.9-1.1); PROTIME 13.4 SECONDS (9.6-11.1)
[2016-11-06 07:56] LABS: ABSOLUTE NEUTROPHIL CT (ANC) 6.6 K/uL (1.8-7.8); BANDED NEUTROPHIL # 1.5 K/uL (0.0-0.1); BANDED NEUTROPHILS % 20 %; LYMPHOCYTE # 0.5 K/uL (0.8-4.0); LYMPHOCYTE % 6 %; MONOCYTE # 0.5 K/uL (0.0-1.0); SEGMENTED NEUTROPHIL # 5.1 K/uL (1.8-7.8); SEGMENTED NEUTROPHIL % 66 %
--- NOTE | 2016-11-06 08:19 | NUR ---
SIGNIFICANT EVENT: PATIENT ALERT/ORIENTED X 3. VERY HARD OF HEARING. LUNGS CLEAR AND DIM THROUGOUT. NO EDEMA PRESENT. NO COMPLAINTS OF N/T OR S/S OF HEADACHE. PACEMAKER. BOWELS HYPOACTIVE. UTI. ROBERTSON INTACT. LASIX GIVEN X 1 THIS SHIFT. 20 MEQ KCL GIVEN X 1 THIS SHIFT. ON COUMADIN. SCDS INTACT. IV TO LEFT WRIST SALINE LOCKED. MEDS WHOLE WITH WATER. REGULAR DIET. WAS NPO AT MIDNIGHT FOR SURGERY TODAY. HX OF AFIB. NSR THIS SHIFT. BEDREST. FOLLOW UP: SURGERY AROUND 11 AM.
--- NOTE | 2016-11-06 13:35 | NUR ---
Sent referral to [facility] because they do have beds next week.
--- NOTE | 2016-11-06 14:53 | NUR ---
Provided patient with copy of BPCI notification letter.
--- NOTE | 2016-11-06 15:07 | NUR ---
Significant Event: PT alert, oriented to self. VSS, O2 at 3L per nasal cannula. PT had OR on R)leg this shift. Dressing intact to R)hip. Minimal c/o pain, controlled with percocet. Gutierrez patent. L)hand IV patent, zosyn running. Tolerating liquids, takes pills whole, 1 at a time with water. Follow up:
--- NOTE | 2016-11-07 05:28 | NUR ---
SIGNIFICANT EVENT: PATIENT A/O X 3. PERRLA. MOVES ALL EXTREMITIES SPONTANEOUSLY AND TO COMMAND. NO COMPLAINTS OF N/T OR HEADACHE THIS SHIFT. PAIN TO RIGHT LOWER EXTREMITY WITH MOVEMENT. LUNGS SLIGHTLY COARSE. ON 3 L OF O2. TACHYPNEIC AT TIMES. BOWELS ACTIVE. ON COUMADIN. IV TO LEFT FOREARM SALINE LOCKED. CARDIAC DIET. MEDS WHOLE, LIKES TO USE A STRAW. NO BM THIS SHIFT. WBAT. HARD OF HEARING. FOLLOW UP: BLOOD CULTURES WERE DRAWN FOR TEMP OF 102. MONITOR TEMP. INCENTIVE SPIROMETER.
[2016-11-07 05:50] LABS: HEMOGLOBIN 10.5 g/dL (10.0-15.0); MCH 29.5 pg (27.0-34.0); MCHC 32.8 gm/dL (32.0-36.5); MCV 89.9 fl (83.0-98.0); MPV 9.2 fl (9.4-12.4); PLATELET COUNT 128 K/uL (150-450); RBC 3.56 M/uL (3.00-5.00); RDW-CV 12.8 % (11.9-14.6); WBC 7.3 K/uL (4.0-11.0)
[2016-11-07 05:59] LABS: INR - (THERAPEUTIC) 1.1 (0.9-1.1)
[2016-11-07 06:01] LABS: ANION GAP 12.1 (10.0-19.0); CALCIUM 8.3 mg/dL (8.5-10.5); CREATININE 1.1 mg/dL (0.5-1.1); POTASSIUM 4.1 mMol/L (3.7-5.1)
[2016-11-07 06:19] LABS: BANDED NEUTROPHIL # 1.5 K/uL (0.0-0.1); BANDED NEUTROPHILS % 20 %; LYMPHOCYTE # 0.6 K/uL (0.8-4.0); LYMPHOCYTE % 8 %; MONOCYTE # 0.7 K/uL (0.0-1.0); SEGMENTED NEUTROPHIL # 4.5 K/uL (1.8-7.8); SEGMENTED NEUTROPHIL % 62 %
--- NOTE | 2016-11-07 16:41 | NUR ---
Significant Event: PT alert, oriented to self. VSS, O2 at 2L per nasal cannula. IV restarted twice today, now in L)FA, sl'd. PT transfers with walker, gait belt and 2-3 assist. Void x2 ( one was a large incontinent) this shift. Echo done this shift. Dressing intact to R)hip. Pain controlled with norco, 1 tab given last at 1300. PT tolerating liquids, little appetite. Encouraged IS. Follow up:
[2016-11-07 20:55] LABS: BILIRUBIN URINE NEGATIVE (NEGATIVE); BLOOD URINE 150 /UL (NEGATIVE); GLUCOSE URINE NEGATIVE (NEGATIVE); KETONE URINE NEGATIVE (NEGATIVE); LEUKOCYTES URINE NEGATIVE /UL (NEGATIVE); NITRITE URINE NEGATIVE (NEGATIVE); PROTEIN URINE 30 mg/dL (NEGATIVE); UROBILINOGEN URINE NORMAL (NORMAL)
[2016-11-07 20:59] LABS: COLOR URINE YELLOW (YELLOW); TURBIDITY URINE CLEAR (CLEAR)
[2016-11-07 21:02] LABS: BACTERIA URINE NEGATIVE (NEGATIVE); EPITHELIAL URINE 20-50 #/HPF (NEGATIVE); WBC URINE 0-2 #/HPF (NEGATIVE)
[2016-11-07 21:03] LABS: AMORPHOUS URINE 2+ (NEGATIVE)
[2016-11-07 21:05] LABS: HEMATOCRIT 31.6 % (30.0-46.0); HEMOGLOBIN 10.5 g/dL (10.0-15.0); MCH 29.7 pg (27.0-34.0); MCHC 33.2 gm/dL (32.0-36.5); MCV 89.5 fl (83.0-98.0); MPV 9.5 fl (9.4-12.4); PLATELET COUNT 134 K/uL (150-450); RBC 3.53 M/uL (3.00-5.00); RDW-CV 12.8 % (11.9-14.6); WBC 5.7 K/uL (4.0-11.0)
[2016-11-07 21:16] LABS: ANION GAP 11.7 (10.0-19.0); CREATININE 1.3 mg/dL (0.5-1.1); POTASSIUM 3.7 mMol/L (3.7-5.1)
[2016-11-07 21:28] LABS: ABSOLUTE NEUTROPHIL CT (ANC) 4.4 K/uL (1.8-7.8); BANDED NEUTROPHIL # 0.2 K/uL (0.0-0.1); BANDED NEUTROPHILS % 4 %; LYMPHOCYTE # 0.5 K/uL (0.8-4.0); LYMPHOCYTE % 8 %; MONOCYTE # 0.9 K/uL (0.0-1.0); SEGMENTED NEUTROPHIL # 4.2 K/uL (1.8-7.8); SEGMENTED NEUTROPHIL % 73 %
[2016-11-08 04:57] LABS: HEMATOCRIT 30.5 % (30.0-46.0); HEMOGLOBIN 9.9 g/dL (10.0-15.0); MCH 29.2 pg (27.0-34.0); MCHC 32.5 gm/dL (32.0-36.5); MPV 9.3 fl (9.4-12.4); PLATELET COUNT 126 K/uL (150-450); RBC 3.39 M/uL (3.00-5.00); RDW-CV 12.7 % (11.9-14.6); WBC 5.4 K/uL (4.0-11.0)
[2016-11-08 05:05] LABS: INR - (THERAPEUTIC) 1.1 (0.9-1.1); PROTIME 11.5 SECONDS (9.6-11.1)
[2016-11-08 05:09] LABS: ANION GAP 11.8 (10.0-19.0); CALCIUM 8.1 mg/dL (8.5-10.5); CREATININE 1.3 mg/dL (0.5-1.1); POTASSIUM 3.8 mMol/L (3.7-5.1)
--- NOTE | 2016-11-08 05:26 | NUR ---
Significant Event: ORIENTED TO SELF AND MONTH AT TIMES. DENIES N/T. MOVES ALL EXTREMITIES. 2+ PEDAL PULSES. R) HIP PRECAUTIONS. ARRIVED TO SHIFT AND PATIENT HAD A FEVER OF 102.6. MD WAS NOTIFIED AND ORDERS FOR VANCOMYCIN X1 AND TYLENOL PRN WERE GIVEN. AT THIRD ASSESSMENT TEMP WAS 99.3. PT IS STABLE ON 2L NASAL CANULA. IV TO RIGHT AC AND RIGHT LATERAL FOREARM. LACTATED RINGERS AT 50 ML/HR. INTERMITTENT IV ANTIBIOTICS. INCONTINENT OF URINE. Q2HR TURNS. REFUSED PNEUMATICS THIS SHIFT. WAS NOT IMPULSIVE BUT DID NOT USE CALL LIGHT. MEPILEX DRESSING TO RIGHT HIP. CLEAN/DRY/INTACT. REORIENT WHEN CONFUSED. CARDIAC DIET WITH THIN LIQUIDS. TAKES PILLS WHOLE ONE AT A TIME WITH WATER. WILL DRINK A LOT OF WATER IF OFFERED/ENCOURAGED. COOPERATIVE WITH CARES. Follow up: TO SNF? TCU?
[2016-11-08 05:45] LABS: ABSOLUTE NEUTROPHIL CT (ANC) 3.9 K/uL (1.8-7.8); BANDED NEUTROPHIL # 1.1 K/uL (0.0-0.1); BANDED NEUTROPHILS % 21 %; LYMPHOCYTE # 0.8 K/uL (0.8-4.0); LYMPHOCYTE % 14 %; MONOCYTE # 0.6 K/uL (0.0-1.0); SEGMENTED NEUTROPHIL # 2.8 K/uL (1.8-7.8); SEGMENTED NEUTROPHIL % 52 %
--- NOTE | 2016-11-08 14:50 | NUR ---
Significant Event: PT VERY DROSWY AT SHIFT CHANGE, VSS, VERY CHILKAT, REPOND TO QUESTIONS APPROPRIATELY. PT UP WITH THERAPY - HEAVY 2 ASSIST. PT UP TO CHAIR WITH ASSIST FROM THERAPY AND AIDE. UP TO BSC W/ LIFT - PT REFUSE TO STAND PIVOT W/ WALKER AND 2 ASSIST. PT A/O X2 - SELF AND PLACE, TIME INCONSISTANT. PT RESPONDS APPROPRATELY TO CONVERSTION W/ FAMILY, RECOGNIZE FAMILY. PT NAP OFF/ON THIS TOD. PT APPITITE POOR - WILL DRINK ENSURES, AND WATER. CALL LIGHT IN REACH, QUESITONS/CONCERNS ADDRESSED THIS TOD. Follow up:
--- NOTE | 2016-11-09 01:46 | NUR ---
Significant Event: Patient is alert to self. Vert KNIK. Follows commands at times. Stubborn. On tele, Pacemaker. On 2L of O2 NC, pt desats in low 80s w/o. Non productive cough. Regular diet low appetite. Last BM 11/08. Inc of bowel and bladder. Drsg to R) hip meplex that has been reinforced with gauze and tape. IV to R) forearm running LR. IV to L) forearm SL. Pt able to take pills couple at a time with water or insure. Pt up heavy 2 assist pivot to full lift. Encourage movment. Follow up:
[2016-11-09 05:25] LABS: ALBUMIN 2.3 gm/dL (3.5-5.0); ANION GAP 11.1 (10.0-19.0); CALCIUM 8.1 mg/dL (8.5-10.5); POTASSIUM 4.1 mMol/L (3.7-5.1); TOTAL BILIRUBIN 0.3 mg/dL (0.0-1.5); TOTAL PROTEIN 5.7 g/dL (6.0-8.4)
[2016-11-09 05:35] LABS: INR - (THERAPEUTIC) 1.5 (0.9-1.1)
[2016-11-09 07:17] LABS: BASOPHIL % 0.2 %; EOSINOPHIL # 0.1 K/uL (0.0-0.5); EOSINOPHIL % 2.4 %; HEMATOCRIT 30.1 % (30.0-46.0); HEMOGLOBIN 9.9 g/dL (10.0-15.0); IMMATURE GRANULOCYTE % 0.2 %; LYMPHOCYTE # 0.6 K/uL (0.8-4.0); LYMPHOCYTE % 13.3 %; MCH 29.7 pg (27.0-34.0); MCHC 32.9 gm/dL (32.0-36.5); MCV 90.4 fl (83.0-98.0); MONOCYTE # 0.7 K/uL (0.0-1.0); MONOCYTE % 14.1 %; MPV 9.4 fl (9.4-12.4); NEUTROPHIL # (ANC) 3.3 K/uL (1.8-7.8); NEUTROPHIL % 69.8 %; NRBC % 0 /100WBC (0-0.00); PLATELET COUNT 116 K/uL (150-450); RBC 3.33 M/uL (3.00-5.00); RDW-CV 12.7 % (11.9-14.6); WBC 4.7 K/uL (4.0-11.0)
--- NOTE | 2016-11-09 11:20 | NUR ---
A - CONSULT RECEIVED D/T POOR PO INTAKE. PT IS DRINKING ENSURE. DECREASED APPETITE. ENC PO INTAKE. LABS: GLU 115, BUN/CR 29/1.0, ALB 2.3 MEDS: REMERON, KCL, ARICEPT, FLORASTOR, LR, PEPCID, ZOSYN, DILANTIN, BOWEL/NAUSEA DIET: CARDIAC. INTAKE: REF-SIPS. ENSURE TID. NEEDS: [id number] KCAL, 70-84 G PRO D - INADEQUATE NUTRIENT INTAKE R/T DECREASED APPETITE AEB INTAKE RECORD. I - GOAL FOR INTAKE > 50% BY NEXT ASSESSMENT. REC CHANGING DIET TO REGULAR TO ALLOW MORE MENU OPTIONS. WILL CONTINUE ENSURE TID. WILL ADD MAGIC CUP @ L&D. M/E - WILL MONITOR INTAKE AND DIET. WILL F/U IN 3-4 DAYS.
--- NOTE | 2016-11-09 16:34 | NUR ---
Significant Event: PT ALERT TO SELF. VERY HARD OF HEARING. FOLLOWS SIMPLE COMMANDS. PERRLA. 2-ASSIST/FULL LIFT/TURN Q2H. O2 AT 3 LITERS PER NASAL CANNULA. TACHYPNEIC WITH RATES IN THE UPPER 20'S. PT IN A-FIB/A-FLUTTER WITH IRREGULAR RATES. WAS ON THE FLOOR WHEN THE PT'S RATES INCREASED TO THE 140'S. PT WAS TAKING OFF O2 AT THIS TIME WELL. 10 MG IV CARDIZEM GIVEN X1. CARDIZEM DRIP STARTED PER MD ORDER AT 1425 TO KEEP HEART RATE LESS THAN 100; INFUSING AT 5 MG/HR. BILATERAL MITTEN RESTRAINTS PLACED AT 1330 DUE TO PT CONTINUOUSLY TAKING O2 OFF AND SATS DROPPING TO THE MID 80'S; PT WAS RE-INFORCED NUMEROUS TIMES THE IMPORTANCE OF KEEPING O2 ON AND OTHER INTERVENTIONS WERE TRIED WITHOUT SUCCESS. RESTRAINTS WERE TAKEN OFF AT 1430 AND PT HAS BEEN COMPLIANT KEEPING O2 ON. OTHER VITAL SIGNS STABLE. PT HAS A PACEMAKER. TOTAL OF 4 MG OF IV MAGNESIUM ORDERED; THIRD BAG IS CURRENTLY INFUSING. DECREASED APPETITE. HAD BITES/SIPS OF BREAKFAST/LUNCH. DOES DRINK FLUIDS WELL IF OFFERED. PT IS A FEEDER FOR MEALS. VOIDS PER BEDPAN. 2 LOOSE BM'S TODAY. BILATERAL CALF PUMPS IN PLACE. PT STARTED ON LOVENOX. CT OF CHEST FOR PE PROTOCOL DONE THIS AFTERNOON. TAKES MEDICATIONS WHOLE WITH THIN LIQUIDS. IV'S TO R)FA AND L)HAND. INTERMITTENT ANTIBIOTICS. DRESSING TO R)HIP INTACT. 1 NORCO GIVEN X2 WITH LAST DOSE AT 1256. Follow up: CONTINUE TO MONITOR
[2016-11-10 04:49] LABS: EOSINOPHIL # 0.1 K/uL (0.0-0.5); EOSINOPHIL % 2.7 %; HEMATOCRIT 29.5 % (30.0-46.0); HEMOGLOBIN 9.4 g/dL (10.0-15.0); IMMATURE GRANULOCYTE % 0.7 %; LYMPHOCYTE # 0.8 K/uL (0.8-4.0); LYMPHOCYTE % 18.6 %; MCH 28.7 pg (27.0-34.0); MCHC 31.9 gm/dL (32.0-36.5); MCV 90.2 fl (83.0-98.0); MONOCYTE # 0.6 K/uL (0.0-1.0); MPV 9.6 fl (9.4-12.4); NEUTROPHIL # (ANC) 2.6 K/uL (1.8-7.8); NRBC % 0 /100WBC (0-0.00); PLATELET COUNT 132 K/uL (150-450); RBC 3.27 M/uL (3.00-5.00); RDW-CV 12.7 % (11.9-14.6); WBC 4.1 K/uL (4.0-11.0)
[2016-11-10 05:00] LABS: ANION GAP 11.4 (10.0-19.0); CALCIUM 8.1 mg/dL (8.5-10.5); CREATININE 0.9 mg/dL (0.5-1.1); INR - (THERAPEUTIC) 2.3 (0.9-1.1); PROTIME 26.5 SECONDS (9.6-11.1)
[2016-11-10 05:03] LABS: POTASSIUM 4.4 mMol/L (3.7-5.1)
--- NOTE | 2016-11-10 06:39 | NUR ---
Significant Event: Alert to self. Very hard of hearing. Follows commands at times. Up 2 assist pivot to full lift. On tele running a-fib on cardizem gtt to keep HR less than 100. On 2L of O2. Has non-productive cough. Regular diet. Inc of bowel and bladder. Meplex drsg to R) hip reinforced with gauze and tape. IV to R) forearm running cardizem. IV to L) forearm SL. On scheduled tylenol for pain. Follow up:
--- NOTE | 2016-11-10 13:04 | NUR ---
Update from nursing that Karen is now on a drip so she won't be able to go to [facility] today. I called and updated Shanita at [facility] to this, will talk with her again in the morning about potential dismissal to them later Wednesday morning vs. pending if pt is off the drip or not and cleared by MD to go to SNF. Shanita was fine with this. Packet started, orders printed and ID Screen complete and in the packet. Will continue to follow and assist.
--- NOTE | 2016-11-10 17:16 | NUR ---
Significant Event: a/o to person. moves all extremities spontaneously and on command. Pedal pulse to right lower extremity palpable/csm adequate. tele with afib/aflutter/paced. continues on 2 liters oxygen. continent/incontinent of urine and bowel. moderate loose BM this shift. full lift or 2 person assist with walker and gait belt. IV with cardizem drip continueing with goal of HR to be less than 100. Mepilex dsg with reinforcement to right hip dry/intact. takes meds whole in applesauce. Cardiac diet. discharge plan- SNF placement when ready. [place]. does have hearing aid for right ear
--- NOTE | 2016-11-11 04:30 | NUR ---
Significant Event: The patient is alert and oriented to self. Moves all extremities spontaneously and to command. Moves Right Lower extremity with difficulty. Up with 2 Assist Pivot or Full Lift. Very [place]. A-fib/A-flutter, cardizem drip infusing at 5mg/hr without any difficulty. VSS, on 3L oxygen per NC. The patient gets restless, agitated, and uncooperative at times. Bruising to arms. Gutierrez for accurate I&O. 40mg IV Lasix given this shift. Mepilex dressing to the Right Hip dry and intact. PIV to the Right AC saline locked. PIV to the Left wrist infusing the Cardizem drip. Lungs sound slightly coarse, the patient has a non-productive cough. Crush meds and place in applesauce. Incontinent of bowel. Follow up: SNF in future
[2016-11-11 04:35] LABS: PROTIME 47.4 SECONDS (9.6-11.1)
[2016-11-11 04:40] LABS: ANION GAP 10.1 (10.0-19.0); CALCIUM 8.2 mg/dL (8.5-10.5); POTASSIUM 4.1 mMol/L (3.7-5.1)
--- NOTE | 2016-11-11 11:14 | NUR ---
Call to Shanita at [facility], left a VM to let her know that Karen is still on the drip so she won't be coming to them today. Plan to update her tomorrow and if pt is ready at that time we will set up transportation with the [place] van to [employer] tank [place]. Will continue to follow and assist.
--- NOTE | 2016-11-11 19:31 | NUR ---
Significant Event: Patient to self, Very hard of hearing. Patient able to follow commands at times. Full lift done this shift. Up to chair. Cardizealberto gtt D'Cd this shift, PO Cardizem started, Order on chart. On 2L O2 Per NC. Patient incontinent of bowel this shift. Gutierrez in place draining clear yellow urine. Meplex dressing to R) hip with shadow drainage. IV to L) wrist was removed by patient this shift. IV to R) AC SL. Patient takes meds crushed in applesauce. Patient on scheduled Tylenol for pain. Follow up:
--- NOTE | 2016-11-12 04:11 | NUR ---
Significant Event: Alert and oriented to self. Moves all extremitites spontaneously and to command. Up 2 assist, pivot or full lift. Extremely hard of hearing. A-fib/A-flutter. Cardizem gtt d/c on day shift. Patients heart rate was in 160s at shift change. Gave 15mg of cardizem IV. Heart rate slowly started to drop. Rest of shift heart rate in 90s-110s. Blood pressures stable throughout shift. Lungs slightly coarse in upper lobes and clear and diminished in lower lobes, on 1L of O2. Patient had one BM today. Matt for accurate I&O. Patient restless and agitated at times. Mepilex dressing to right hip dry and intact with scant shadow. PIV to right AC saline locked. Meds crused in applesauce. Follow up: SNF
[2016-11-12 05:09] LABS: INR - (THERAPEUTIC) 4.3 (0.9-1.1); PROTIME 51.4 SECONDS (9.6-11.1)
[2016-11-12 05:10] LABS: ANION GAP 13.8 (10.0-19.0); CALCIUM 8.3 mg/dL (8.5-10.5); CREATININE 0.9 mg/dL (0.5-1.1)
[2016-11-12 05:12] LABS: POTASSIUM 3.8 mMol/L (3.7-5.1)
--- NOTE | 2016-11-12 11:31 | NUR ---
Call to Shanita at [facility] to let her know that we were going to hold Karen for another day per Cardio and then we would look at discharge again tomorrow. Shanita was fine with this, states to call in the morning if she is ready to go and we will set up a van time then. Will continue to follow and assist.
[2016-11-12 12:13] LABS: BICARBONATE 36.7 mmol/L (18.0-23.0); PCO2 45 mmHg (35-45); PO2 73 mmHg (80-90)
--- NOTE | 2016-11-12 19:43 | NUR ---
Significant Event: Alert but drowsy, very hard of hearing, difficult to aquire orientation. Up to chair with full lift. Increasingly drowsy by late morning, unwilling to take oral meds. CT scan and ABGs done. 3 BM this shift. Gutierrez in place. Patient frequently removes nasal cannula, wears 1 L. SBP 120-160, HR 80-160, afebrile. Follow up: Possible discharge to [facility] Wednesday?
--- NOTE | 2016-11-13 04:25 | NUR ---
Significant Event: Patient alert to self. Moves all extremities spontaneously and occasionally to command. Extremely hard of hearing. Up full lift. A-fib/Aflutter. On cardizem PO. VSS on 2L of O2. Patient restless and agitated from 2300 on. Lungs slightly coarse in upper lobes. Had one incontinent BM today. Gutierrez for accurate I&O. Mepilex dressing to right hip dry and intact with scant amount of shadow. PIV to right AC saline locked. Meds crushed in applesauce. On scheduled tylenol for pain. Follow up: [facility] today?
[2016-11-13 04:44] LABS: BASOPHIL % 0.1 %; EOSINOPHIL # 0.1 K/uL (0.0-0.5); EOSINOPHIL % 1.2 %; HEMATOCRIT 30.5 % (30.0-46.0); IMMATURE GRANULOCYTE # 0.1 K/uL (0.0-0.3); IMMATURE GRANULOCYTE % 0.8 %; LYMPHOCYTE # 1.3 K/uL (0.8-4.0); LYMPHOCYTE % 14.1 %; MCH 29.2 pg (27.0-34.0); MCHC 32.8 gm/dL (32.0-36.5); MCV 88.9 fl (83.0-98.0); MONOCYTE % 11.3 %; MPV 9.3 fl (9.4-12.4); NEUTROPHIL # (ANC) 6.6 K/uL (1.8-7.8); NEUTROPHIL % 72.5 %; NRBC % 0 /100WBC (0-0.00); RBC 3.43 M/uL (3.00-5.00); RDW-CV 12.8 % (11.9-14.6); WBC 9.1 K/uL (4.0-11.0)
[2016-11-13 04:58] LABS: PLATELET COUNT 272 K/uL (150-450)
[2016-11-13 05:12] LABS: ANION GAP 13.2 (10.0-19.0); CALCIUM 8.1 mg/dL (8.5-10.5); POTASSIUM 3.2 mMol/L (3.7-5.1)
[2016-11-13 05:21] LABS: INR - (THERAPEUTIC) 2.9 (0.9-1.1)
[2016-11-13 12:26] LABS: BILIRUBIN URINE NEGATIVE (NEGATIVE); BLOOD URINE 25 /UL (NEGATIVE); COLOR URINE YELLOW (YELLOW); GLUCOSE URINE NEGATIVE (NEGATIVE); KETONE URINE NEGATIVE (NEGATIVE); LEUKOCYTES URINE NEGATIVE /UL (NEGATIVE); NITRITE URINE NEGATIVE (NEGATIVE); PROTEIN URINE 30 mg/dL (NEGATIVE); TURBIDITY URINE CLEAR (CLEAR); UROBILINOGEN URINE NORMAL (NORMAL)
[2016-11-13 12:39] LABS: AMORPHOUS URINE 1+ (NEGATIVE); BACTERIA URINE FEW (NEGATIVE); EPITHELIAL URINE 0-2 #/HPF (NEGATIVE); MUCUS URINE 1+ (NEGATIVE)
--- NOTE | 2016-11-13 14:35 | NUR ---
A - NUT F/U. CONSULT RECEIVED PER DELERIUM PROTOCOL. PER AUTOMOTIVE TIRE WORKER REPORT - ORAL MOTOR FUNCTION LIMITED, REC PUREED DIET, THIN LIQUIDS & MAY NEED ALTERNATIVE SOURCE OF NUTRITION. A/O TO SELF. DECREASED APPETITE. LABS: K+ 3.2, GLU 142, BUN/CR 35/1.0 MEDS: SEROQUEL, ZYPREXA, FLORASTOR, PEPCID, DILANTIN, ARICEPT, NAUSEA DIET: CARDIAC. INTAKE: 0-25% ENSURE TID, MAGIC CUP @ L&D NEEDS: 2580-2551 KCAL, 70-84 G PRO D - INADEQUATE NUTRIENT INTAKE R/T DECREASED APPETITE, MENTAL STATUS AEB INTAKE RECORD, DELERIUM, AUTOMOTIVE TIRE WORKER EVAL RESULTS. UNABLE TO MEET NEEDS ORALLY I - GOAL FOR INCREASED ORAL INTAKE. WILL CONTINUE CURRENT SUPPLEMENTS. REC NUTRITION CONSULT IF ENTERAL NUTRITION RECS DESIRED M/E - WILL MONITOR INTAKE. F/U IN 2-4 DAYS.
--- NOTE | 2016-11-13 14:42 | NUR ---
UNABLE TO MEET NEEDS ORALLY. PLEASE CONSULT IF ENTERAL NUTRITION RECS DESIRED.
--- NOTE | 2016-11-13 15:12 | NUR ---
Call to Shanita at [facility] to let her know that Karen wasn't going to be ready to come to them today but she might be ready tomorrow. Shanita tells me that if she is ready for discharge tomorrow, they might be able to do a weekend admission, nursing would just need to call the admission phone, [phone], and ask for Shanita and see what they can do. Sticky note with these instructions were left on the front of the chart. Raul Schroeder and SOLANGE Guzman were also informed of this. PAcket started, orders are on the chart and ID Screen is complete and in the packet. Nursing will need to call son and update him if/when she is cleared for discharge if it is over the weekend. Nursing will also need to fax over discharge orders as well. Fax number was left on the sticky note as well. If she is not cleared for discharge on Wednesday, we will work on getting her there on Wednesday. Will continue to follow and assist.
--- NOTE | 2016-11-13 16:30 | NUR ---
Significant Event: Alert to self only. Confused and at times agitated. Room air. SBP 110's & 130's. HR 70's and 90's. Catheter removed at 1130, 375 ml out, with no urination since removal. Up to recliner with 2 assist and full lift. Speech evaluation, request puree diet and thin liquids. Crush all meds and give with applesauce. Right hip melpilex loose, changed. Right antecubial saline locked. 1:1 feeder. Follow up:
[2016-11-14 04:18] LABS: INR - (THERAPEUTIC) 2.8 (0.9-1.1); PROTIME 31.9 SECONDS (9.6-11.1)
[2016-11-14 04:22] LABS: ANION GAP 11.7 (10.0-19.0); CALCIUM 8.3 mg/dL (8.5-10.5); CREATININE 1.1 mg/dL (0.5-1.1); POTASSIUM 3.7 mMol/L (3.7-5.1)
--- NOTE | 2016-11-14 05:16 | NUR ---
Significant Event: Alert to self. Very nondalton to deaf, ? hearing aide battery working. Tele Afib to Aflutter. Right hip dressing - mepilex CDI. Right FA IV - 250ml bolus given then NS @ 70ml/hr. Gutierrez pulled 11/13 @ 1130, no UOP but multiple loose BMs so fluids restarted. Coccyx red - aloe vesta. Full lift. Crush meds in applesauce. 1:1 feeder Follow up:
--- NOTE | 2016-11-14 18:34 | NUR ---
Significant Event: PT ALERT TO SELF ONLY. VERY HARD OF HEARING. 2-ASSIST/FULL LIFT/TURN Q2H. UP IN THE CHAIR FOR MOST OF THE SHIFT; RETURNED TO BED AFTER LUNCH. IRREGULAR HEART RATE WITH RATES IN THE LOW 100'S; A-FIB/A-FLUTTER. INCONTINENT URINE SEVERAL TIMES THIS SHIFT. TAKES MEDICATIONS CRUSHED IN APPLESAUCE. POOR APPETITE; ONLY HAD SOME BITES OF MEALS TODAY. PT IS A FEEDER. DRESSING TO R)HIP INTACT. 2 MG IV MORPHINE GIVEN AT 1140. ZYPREXA IM GIVEN AT 1538 DUE TO EXTREME RESTLESSNESS THIS AFTERNOON. SCHEDULED TYLENOL GIVEN, WITH RELIEF. PT PULLED OUT IV THIS AFTERNOON. NOW RESTING MORE COMFORTABLY AND IS LESS RESTLESS. Follow up: NEED NEW IV; TRANSFER TO [facility] ON WEDNESDAY?
--- NOTE | 2016-11-15 05:14 | NUR ---
Significant Event: Alert to self only. 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 Agitation w/?hallucinations early in shift - pulled out IV, kept pulling off tele and surgical dressing (pulled on jesus too). PO seroquel no affect. Went to give IM zyprexa and Dr. Manjarrez at bedside, verbalized to hold medications and use a 1:1 if needed at that time. Slept for a little while. More awake after 4am, pulling at tele again but able to obtain IV in Left FA. Right hip mepilex w/ 2 jesus partially pulled out underneth. Follow up:
[2016-11-15 06:11] LABS: INR - (THERAPEUTIC) 1.9 (0.9-1.1); PROTIME 20.7 SECONDS (9.6-11.1)
--- NOTE | 2016-11-15 12:57 | NUR ---
A - NUT F/U. ALERT TO SELF. APPETITE POOR, NEEDS FED. LABS: GLU 145, BUN/CR 40/1.1 MEDS: SEROQUEL, ZYPREXA, FLORASTOR, PEPCID, DILANTIN, ARICEPT, BOWEL/NAUSEA DIET: CARDIAC. INTAKE: REF-25% ENSURE TID, MAGIC CUP @ L&D. NEEDS: 4977-2974 KCAL, 70-84 G PRO D - INADEQUATE NUTRIENT INTAKE R/T DECREASED APPETITE, ALTERED MENTAL STATUS AEB INTAKE RECORD. UNABLE TO MEET NEEDS ORALLY. I - GOAL FOR INCREASED NUTRIENT INTAKE. REC DOBHOFF PLACEMENT AND JEVITY 1.5 @ 50 ML/HR W/ 150 ML WATER Q4 HRS TO PROVIDE 1800 KCAL, 77 G PRO, 912 ML FREE WATER (+FLUSH) M/E - WILL MONITOR INTAKE, POC. F/U IN 2-4 DAYS.
--- NOTE | 2016-11-15 13:00 | NUR ---
PT UNABLE TO MEET NEEDS ORALLY. REC DOBHOFF PLACEMENT AND JEVITY 1.5 @ 50 ML/HR W/ 150 ML WATER Q4 HRS TO MEET NUTRIENT NEEDS.
--- NOTE | 2016-11-15 14:20 | NUR ---
Significant Event: PATIENT ALERT AT TIMES, OTHER TIMES VERY DROWSY. DOES NOT TELL ME HER NAME OR ANYTHING. WILL HAVE A CONVERSATION WITH YOU AT TIMES, BUT DOES NOT MAKE SENSE. VERY RESTLESS AND AGITATED AT TIMES. DID GIVE SEROQUEL THIS AM AND LATER HAD ZYPREXA WITH SOME RELIEF. MOVES SPONTANEOUSLY BUT DOESNT REALLY FOLLOW ANY COMMANDS. PUPILS REMAIN PINPOINT AND SLUGGISH. LUNGS CLEAR AND DIM, ON ROOM AIR. DOES REQUIRE 1-2 LITERS AT TIMES WHEN SLEEPING. IV IN LEFT FOREARM SALINE LOCKED. VERY HARD OF HEARING. INCONTINENT OF URINE. ALARMS ON FOR SAFETY. PLAN BACK TO [facility]. PUREED DIET, FEEDER. LOVES ICE WATER. Follow up: MONITOR FOR SIGNS OF PAIN. DELIRIUM. ALARMS.
[2016-11-15 16:50] LABS: BASOPHIL % 0.1 %; EOSINOPHIL # 0.2 K/uL (0.0-0.5); EOSINOPHIL % 1.9 %; HEMOGLOBIN 8.7 g/dL (10.0-15.0); IMMATURE GRANULOCYTE # 0.1 K/uL (0.0-0.3); IMMATURE GRANULOCYTE % 0.9 %; LYMPHOCYTE # 1.3 K/uL (0.8-4.0); LYMPHOCYTE % 16.4 %; MCH 29.3 pg (27.0-34.0); MCHC 32.2 gm/dL (32.0-36.5); MCV 90.9 fl (83.0-98.0); MONOCYTE % 12.9 %; MPV 9.1 fl (9.4-12.4); NEUTROPHIL # (ANC) 5.5 K/uL (1.8-7.8); NEUTROPHIL % 67.8 %; NRBC % 0.2 /100WBC (0-0.00); RBC 2.97 M/uL (3.00-5.00); RDW-CV 13.1 % (11.9-14.6); WBC 8.1 K/uL (4.0-11.0)
[2016-11-15 16:51] LABS: PLATELET COUNT 357 K/uL (150-450)
[2016-11-15 17:03] LABS: ANION GAP 12.1 (10.0-19.0); CALCIUM 8.2 mg/dL (8.5-10.5); CREATININE 1.2 mg/dL (0.5-1.1); POTASSIUM 3.1 mMol/L (3.7-5.1)
--- NOTE | 2016-11-16 04:44 | NUR ---
Significant Event: Alert to self only. 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 Left FA IVSL, coban and jeff wrap to keep pt from pulling it out. Right hip Mepilex w/jesus under (2 jesus partially pulled out by pt and surgeon aware). Incontinent - brief. Picks at everything, frequently pulling off tele and gown. Combative at midnight, sat 1:1 with pt to hold hands to keep from pulling out IV. IM zyprexa given at 0025, not much affect. Finally slept for short burst after 0130, ? just wore self out. Follow up:
[2016-11-16 05:20] LABS: BASOPHIL % 0.1 %; EOSINOPHIL # 0.3 K/uL (0.0-0.5); EOSINOPHIL % 2.6 %; HEMATOCRIT 27.9 % (30.0-46.0); HEMOGLOBIN 8.8 g/dL (10.0-15.0); IMMATURE GRANULOCYTE # 0.1 K/uL (0.0-0.3); IMMATURE GRANULOCYTE % 0.9 %; LYMPHOCYTE # 1.4 K/uL (0.8-4.0); LYMPHOCYTE % 14.5 %; MCH 29.4 pg (27.0-34.0); MCHC 31.5 gm/dL (32.0-36.5); MCV 93.3 fl (83.0-98.0); MONOCYTE % 10.5 %; MPV 9.1 fl (9.4-12.4); NEUTROPHIL # (ANC) 6.9 K/uL (1.8-7.8); NEUTROPHIL % 71.4 %; NRBC % 0.2 /100WBC (0-0.00); PLATELET COUNT 385 K/uL (150-450); RBC 2.99 M/uL (3.00-5.00); RDW-CV 13.4 % (11.9-14.6); WBC 9.7 K/uL (4.0-11.0)
[2016-11-16 05:36] LABS: ANION GAP 13.5 (10.0-19.0); CREATININE 1.3 mg/dL (0.5-1.1); INR - (THERAPEUTIC) 2.2 (0.9-1.1); POTASSIUM 3.5 mMol/L (3.7-5.1)
--- NOTE | 2016-11-16 11:23 | NUR ---
Patient alert to self. Patient follows commands at times. Moves all extremities spontaneously. VSS. Afebrile. 1+ pedal pulses bialterally. Pacemaker. Very hard of hearing. Room air with sats in the low 90s. LS clear and diminished. Incontinent of urine and stool. BS active X4. Meds crushed with applesauce. Decreased appetite. Patient drinks liquids with no complicatons. Encouraged ensure supplements. R) leg dressing placed. C/D/I. Scattered bruising. L) FA PIV SLL. D/Cd prior to transfer. WBAT to the right. Up 2 assist with gaitbelt and walker. Patient to [facility] at 1230.
--- NOTE | 2016-11-16 12:22 | NUR ---
Talked with Terra Schroeder and Dr. Eden, both feel as if Karen is ready to discharge to [facility] today. I called Shanita to let her know that Karen was ready to come back to them, set up a [facility] van to come and pick her up at 1230 today. I phoned her son, Antony, let him know that we were dismissing his mom to SNF today, he was in agreement with this plan. He did ask for a nursing update on her so I forwarded him to her primary care RN Radha. Discharge orders/meds were faxed over to [facility] by Mary prior to Karen dismissal. RN to RN number was given to SOLANGE Garcia to call in report. No other questions, needs or concerns. Plan for transfer to [facility] today at 1230 via [facility] van.
--- NOTE | 2016-11-16 12:46 | NUR ---
Significant Event: Please refer to transfer note. Patient'S PIV D/Cd priot to transfer. Patient's possessions sent with her. driver courier transported at 1240. Pleasant and cooperative with cares. Follow up:
[2016-12-06] MEDS ORDERED: TYLENOL EXTRA500 MG PO (11:48)
[2016-12-06] MEDS ORDERED: PRINIVIL (ZESTRI5 MG PO (11:51)
[2016-12-06] MEDS ORDERED: SEROQUEL50 MG PO (11:54)
[2016-12-06] MEDS ORDERED: CARDIZEM CD (T120 MG PO (11:55)
[2016-12-06] MEDS ORDERED: FLORASTOR250 MG PO (11:56)
[2016-12-06] MEDS ORDERED: PEPCID20 MG PO (11:56)
[2016-12-06] MEDS ORDERED: LOPRESSOR50 MG PO (11:57)
[2016-12-06] MEDS ORDERED: SEROQUEL25 MG PO ×2 (11:57→12:02)
[2016-12-06] MEDS ORDERED: HYDROCODON-ACE1 EAC4 PO (11:57)
[2016-12-06] MEDS ORDERED: ATIVAN 0.5MG0.5 MG PO (11:58)
[2016-12-06] MEDS ORDERED: HALOPERIDOL5 MG/1 ML IM (12:01)
[2016-12-06] MEDS ORDERED: DOCUSATE S50 MG/5 ML PO (12:02)
[2016-12-06] MEDS ORDERED: BACTRIM DS1 TAB PO (12:02)
== END 2016-11-16 12:40 | DRG 469 ==
LOC: GACC 03:07 → GNTU 04:40
PROVIDERS: Emergency Medicine; Family Medicine; Internal Medicine; Internal Medicine Interventional Cardiology; Nurse Practitioner; Nurse Practitioner Family; Orthopaedic Surgery; ADMIT Internal Medicine
PROC: 30233K1 Transfusion of Nonautologous Frozen Plasma into Peripheral Vein, Percutaneous Approach (ICD-10-PCS; 2016-11-05)
PROC: 0SRR0JZ Replacement of Right Hip Joint, Femoral Surface with Synthetic Substitute, Open Approach (ICD-10-PCS; principal; 2016-11-06)
DX: S72.011A Unspecified intracapsular fracture of right femur, initial encounter for closed fracture (principal); I50.33 Acute on chronic diastolic (congestive) heart failure; J96.01 Acute respiratory failure with hypoxia; G93.40 Encephalopathy, unspecified; I48.92 Unspecified atrial flutter; G30.9 Alzheimer's disease, unspecified; N39.0 Urinary tract infection, site not specified; I48.0 Paroxysmal atrial fibrillation; G40.909 Epilepsy, unspecified, not intractable, without status epilepticus; F02.80 Dementia in other diseases classified elsewhere, unspecified severity, without behavioral disturbance, psychotic disturbance, mood disturbance, and anxiety; F32.9 Major depressive disorder, single episode, unspecified; I13.0 Hypertensive heart and chronic kidney disease with heart failure and stage 1 through stage 4 chronic kidney disease, or unspecified chronic kidney disease; N18.3 Chronic kidney disease, stage 3 (moderate); H91.90 Unspecified hearing loss, unspecified ear; E27.9 Disorder of adrenal gland, unspecified; H54.7 Unspecified visual loss; R91.8 Other nonspecific abnormal finding of lung field; B96.20 Unspecified Escherichia coli [E. coli] as the cause of diseases classified elsewhere; R00.0 Tachycardia, unspecified; E87.6 Hypokalemia; K21.9 Gastro-esophageal reflux disease without esophagitis; W19.XXXA Unspecified fall, initial encounter; Y92.129 Unspecified place in nursing home as the place of occurrence of the external cause; Z87.891 Personal history of nicotine dependence; Z85.43 Personal history of malignant neoplasm of ovary; Z79.01 Long term (current) use of anticoagulants; Z91.81 History of falling; Z95.0 Presence of cardiac pacemaker; Z66 Do not resuscitate
CPT/HCPCS: A9270; C1776; J0696; J1160; J1165; J1650; J1940; J2270; J2405; J2543; J3010; J3370; J3475; J3480; J7030; J7040; J7050; J7120; J7612; P9017; Q9967